=== PATIENT | female | born 1980 | race Caucasian/White ===

== ENCOUNTER 2021-02-05 13:50 | Emergency (ER) | payer BC, OTHER ==
[2021-02-05 15:08] LABS: HEMOGLOBIN 11.6 gm/dl (12.3-15.3); RED BLOOD COUNT 4.29 M/UL (4.00-5.10); WHITE BLOOD COUNT 9.2 K/UL (4.5-11.0)
[2021-02-05 15:40] LABS: BUN/CREATININE RATIO 14 (0-10)
== END 2021-02-05 16:03 | disposition home or self-care (01) ==
LOC: ER1 13:50
PROVIDERS: Physician Assistant
DX: R60.0 Localized edema (principal); I10 Essential (primary) hypertension; Z86.73 Personal history of transient ischemic attack (TIA), and cerebral infarction without residual deficits; Z88.0 Allergy status to penicillin; Z88.5 Allergy status to narcotic agent
CPT/HCPCS: 80053; 85025; 99283

== ENCOUNTER → 2021-04-03 | Outpatient (CLI) | payer BC, OTHER ==
[2021-04-04 10:15] LABS: RHEUMATOID ARTHRITIS FACTOR <10.0 IU/mL (0.0-13.9)
[2021-04-05 00:07] LABS: CCP ANTIBODIES IGG/IGA 5 units (0-19)
== END ==
LOC: LAB 14:59
PROVIDERS: Nurse Practitioner Family
DX: R53.83 Other fatigue (principal)
CPT/HCPCS: 36415; 73130; 82550; 83520; 84439; 84443; 85652; 86140; 86200; 86431

== ENCOUNTER → 2021-12-10 | Outpatient (CLI) | payer BC | LOC: EMI 09:57 | DX: R51.9 Headache, unspecified (principal); Z85.3 Personal history of malignant neoplasm of breast | CPT/HCPCS: 70551 ==

== ENCOUNTER → 2022-01-16 | Outpatient (CLI) | payer BC | LOC: SLEEP 21:30 | DX: R06.83 Snoring (principal); R53.83 Other fatigue; R40.0 Somnolence | CPT/HCPCS: 95810 ==

== ENCOUNTER 2022-03-30 23:32 | Emergency (ER) | payer BC ==
[2022-03-31] MEDS ORDERED: PERCOCET 5/325 T1 EA PO (02:21)
[2022-04-11] MEDS ORDERED: ESOMEPRAZOLE MA40 MG PO (08:06)
[2022-04-11] MEDS ORDERED: WELLBUTRIN SR150 M1 PO (08:06)
[2022-04-11] MEDS ORDERED: LOPRESSOR 25 MG25 MG PO (08:07)
[2022-04-11] MEDS ORDERED: TOPIRAMATE50 MG PO (08:08)
[2022-04-11] MEDS ORDERED: COZAAR 25MG TAB25 MG GT (08:09)
[2022-04-11] MEDS ORDERED: LEVOCETIRIZINE D5 MG PO (08:09)
[2022-04-11] MEDS ORDERED: ATORVASTATIN CA40 MG PO (08:10)
[2022-04-11] MEDS ORDERED: TRAMADOL HCL50 MG PO (08:10)
[2022-04-11] MEDS ORDERED: ALLEGRA ALLERG180 MG PO (08:11)
[2022-04-11] MEDS ORDERED: VAZALORE81 MG PO (08:11)
[2022-04-11] MEDS ORDERED: CYCLOBENZAPRINE10 MG PO (10:28)
[2022-04-11] MEDS ORDERED: ENDOCET 7.5-321 EACH PO (10:28)
[2022-04-11] MEDS ORDERED: ZOFRAN 4 MG TAB4 MG PO (10:28)
== END 2022-03-31 02:35 | disposition home or self-care (01) ==
LOC: ER1 23:32
DX: S82.51XA Displaced fracture of medial malleolus of right tibia, initial encounter for closed fracture (principal); S82.61XA Displaced fracture of lateral malleolus of right fibula, initial encounter for closed fracture; Z85.3 Personal history of malignant neoplasm of breast; I10 Essential (primary) hypertension; W01.0XXA Fall on same level from slipping, tripping and stumbling without subsequent striking against object, initial encounter
CPT/HCPCS: 29515; 73610; 96374; 96375; 99283; J2270; J2405

== ENCOUNTER → 2022-04-11 | Day surgery (SDC) | payer BC ==
[~2022-04-11] VITALS: Ht 180.3 cm; Wt 93.0 kg
[~2022-04-11] MED LIST: ALLEGRA ALLERG180 MG PO; ATORVASTATIN CA40 MG PO; COZAAR 25MG TAB25 MG GT; CYCLOBENZAPRINE10 MG PO; ENDOCET 7.5-321 EACH PO; ESOMEPRAZOLE MA40 MG PO; LEVOCETIRIZINE D5 MG PO; LOPRESSOR 25 MG25 MG PO; PERCOCET 5/325 T1 EA PO; TOPIRAMATE50 MG PO; TRAMADOL HCL50 MG PO; VAZALORE81 MG PO; WELLBUTRIN SR150 M1 PO; ZOFRAN 4 MG TAB4 MG PO
== END | disposition home or self-care (01) ==
LOC: OR 01:45
DX: S82.841A Displaced bimalleolar fracture of right lower leg, initial encounter for closed fracture (principal); W01.0XXA Fall on same level from slipping, tripping and stumbling without subsequent striking against object, initial encounter; I10 Essential (primary) hypertension; E78.5 Hyperlipidemia, unspecified; E11.9 Type 2 diabetes mellitus without complications; I82.402 Acute embolism and thrombosis of unspecified deep veins of left lower extremity; K21.9 Gastro-esophageal reflux disease without esophagitis; F32.A Depression, unspecified; F41.9 Anxiety disorder, unspecified; Z87.891 Personal history of nicotine dependence; Z88.0 Allergy status to penicillin; Z88.5 Allergy status to narcotic agent; Z79.82 Long term (current) use of aspirin; Z79.891 Long term (current) use of opiate analgesic; Z79.899 Other long term (current) drug therapy
CPT/HCPCS: 73610; 76000; C1713; J0690; J1100; J1885; J2001; J2250; J2405; J2704; J2795; J7120

== ENCOUNTER → 2022-05-19 | Outpatient (CLI) | payer BC | LOC: RAD 17:25 | DX: M25.552 Pain in left hip (principal); M25.551 Pain in right hip; M16.0 Bilateral primary osteoarthritis of hip; M47.816 Spondylosis without myelopathy or radiculopathy, lumbar region | CPT/HCPCS: 72110; 73522 ==

== ENCOUNTER 2022-05-23 03:35 | Emergency (ER) | payer BC ==
[2022-05-23 05:32] LABS: RED BLOOD COUNT 4.38 M/UL (4.00-5.10); WHITE BLOOD COUNT 15.1 K/UL (4.5-11.0)
[2022-05-23] MEDS ORDERED: FLOMAX0.4 MG PO (10:54)
[2022-05-23] MEDS ORDERED: HYDROCODON-ACE1 EAC4 PO (11:04)
[2022-05-23] MEDS ORDERED: ZOFRAN 4 MG TAB4 MG PO (11:10)
== END 2022-05-23 11:56 | disposition home or self-care (01) ==
LOC: ER1 03:35
PROVIDERS: Family Medicine
DX: N13.1 Hydronephrosis with ureteral stricture, not elsewhere classified (principal); K76.9 Liver disease, unspecified; E11.9 Type 2 diabetes mellitus without complications; I10 Essential (primary) hypertension; Z90.49 Acquired absence of other specified parts of digestive tract; Z85.3 Personal history of malignant neoplasm of breast; Z88.0 Allergy status to penicillin; Z88.5 Allergy status to narcotic agent; Z90.10 Acquired absence of unspecified breast and nipple
CPT/HCPCS: 80053; 81001; 82009; 82800; 82962; 83690; 85025; 96361; 96374; 96375; 96376; 99284; J2270; J2405; J2550; Q9967

== ENCOUNTER → 2022-08-04 | Outpatient (CLI) | payer BC ==
[~2022-08-04] MED LIST changes: +FLOMAX0.4 MG PO; +HYDROCODON-ACE1 EAC4 PO
== END ==
LOC: EMI 13:00
DX: M43.16 Spondylolisthesis, lumbar region (principal); M54.16 Radiculopathy, lumbar region; M43.17 Spondylolisthesis, lumbosacral region
CPT/HCPCS: 72148